=== PATIENT | male | born 2000 | race Caucasian/White ===

== ENCOUNTER 2021-04-25 08:03 | Outpatient (CLI) | payer BC, SELFPAY ==
--- NOTE | ~2021-04-25 | MR_ITS ---
EXAMINATION: MR knee LT wo con DATE: 04/25/2021 09:13 INDICATION: Acute onset left knee pain. TECHNIQUE: Magnetic resonance imaging (MRI) of the left knee was performed without intravenous contra st. Sequences included coronal PD-weighted FSE, coronal PD-weighted FS FSE, sagittal T2-weighted FSE , sagittal PD-weighted FS FSE and axial PD weighted fat saturated FSE. COMPARISON: None. FINDINGS: Medial compartment: Displaced bucket-handle tear of the medial meniscus with minimal nondisplaced meniscal tissue at the body and posterior horn and with displaced meniscal flap extending anteroposteriorly along the medial side of the intercondylar notch resulting in a double anterior horn sign. Articular cartilage is nor mal. Lateral compartment: Lateral meniscus is normal. Articular cartilage is normal. Patellofemoral compartment: Articular cartilage is normal. Ligaments and tendons: Anterior and posterior cruciate ligaments are normal. The medial collateral ligament and fibular domingo ateral ligament complex are normal. The extensor mechanism is normal. The visualized medial and later al hamstring tendons as well as the iliotibial band are normal. Fluid: Small to moderate-sized left knee joint effusion. No loose osteochondral bodies identified. Osseous/other: Normal marrow signal. No fracture or pathologic marrow replacing process. IMPRESSION: 1. Displaced bucket-handle tear of the medial meniscus. 2. Likely reactive small to moderate-sized left knee joint effusion. Reviewed, dictated and finalized at location A. [facility]
== END 2021-04-25 08:04 | disposition home or self-care (01) ==
LOC: ANHIMG 08:08
PROVIDERS: PCP Family Medicine; Visit Provider Orthopaedic Surgery
DX: S83.212A Bucket-handle tear of medial meniscus, current injury, left knee, initial encounter (principal); X58.XXXA Exposure to other specified factors, initial encounter
CPT/HCPCS: 73721